=== PATIENT | female | born 1980 | race Caucasian/White ===

== ENCOUNTER → 2021-10-02 07:07 | Outpatient (CLI) | payer OTHER, SELFPAY ==
--- NOTE | ~2021-10-02 | XR_ITS ---
EXAMINATION: XR cervical spine 4-5V DATE: 10/02/2021 08:04 INDICATION: Neck pain. Right and left arm pain. TECHNIQUE: 6 views of cervical spine standing were obtained. COMPARISON: None. FINDINGS: There is 8 degrees dextrocurvature of cervicothoracic spine. There is kyphosis of cervical spine. Vertebral body heights are normal. There is mildly decreased disc height from C3-C4 through C6 -C7. There is multilevel mild uncovertebral joint osteoarthritis. There is mild central canal stenosi s at C3-C4 and C4-C5. The neural foramina are not well profiled. No prevertebral soft tissue swelling . IMPRESSION: 1. Mild cervical spondylosis. Reviewed, dictated and finalized at location A. [facility]
--- NOTE | ~2021-10-02 | XR_ITS ---
EXAMINATION: XR thoracic spine 2V DATE: 10/02/2021 08:04 INDICATION: Neck and back pain TECHNIQUE: AP, lateral and lateral swimmer's views of the thoracic spine were obtained. COMPARISON: None. FINDINGS: There is dextrocurvature of the lower thoracic spine. There is no fracture. The vertebral b marv heights and intervertebral disc spaces are maintained. Mild cervical spondylosis is noted. IMPRESSION: 1. No acute findings of the thoracic spine. Reviewed, dictated and finalized at location A. [employer]
== END ==
PROVIDERS: Visit Provider Chiropractor
DX: G56.00 Carpal tunnel syndrome, unspecified upper limb (principal); M47.22 Other spondylosis with radiculopathy, cervical region
CPT/HCPCS: 72050; 72070